=== PATIENT | female | born 1975 | race Caucasian/White ===

== ENCOUNTER → 2019-02-09 | Outpatient (CLI) | payer OTHER ==
[~2019-02-09] MED LIST: APAP500 PO; CALCITRIOL0.25 MCG; CALCIUM 600 +1 EAC1 PO; CORTISPORIN OIN15 GM TOP; IRON325 PO; LEVOTHYROXIN0.025 MG PO; LEVOTHYROXIN0.125 M1 PO; LORTAB 5-325 M1 EACH PO; OMEPRAZOLE20 M2 PO; OMEPRAZOLE40 MG PO; TYLENOL325 MG PO
== END ==
LOC: ULTRA 15:44
DX: R22.0 Localized swelling, mass and lump, head (principal)

== ENCOUNTER → 2020-06-19 | Outpatient (CLI) | payer OTHER | LOC: RAD 13:18 | PROVIDERS: ATTEND Family Medicine | DX: Z12.31 Encounter for screening mammogram for malignant neoplasm of breast (principal) ==

== ENCOUNTER → 2020-06-27 | Outpatient (CLI) | payer OTHER | LOC: ULTRA 10:59 | PROVIDERS: ATTEND Family Medicine | DX: N60.02 Solitary cyst of left breast (principal) ==